=== PATIENT | female | born 1970 | race Caucasian/White ===

== ENCOUNTER → 2020-12-21 09:07 | Outpatient (CLI) | payer BC, SELFPAY ==
--- NOTE | ~2020-12-21 | XR_ITS ---
XR chest 2V DATE: 12/21/2020 11:48 INDICATION: Cough. Asthma. TECHNIQUE: PA and lateral views COMPARISON: None FINDINGS: Normal heart size. No hilar or mediastinal enlargement. No pulmonary infiltrate or consolid ation, pleural effusion or pulmonary vascular congestion or pneumothorax is detected. Included skelet al structures are unremarkable. IMPRESSION: No active cardiopulmonary disease Reviewed, dictated and finalized at location B.
== END ==
PROVIDERS: PCP Internal Medicine
DX: J45.40 Moderate persistent asthma, uncomplicated (principal); R05 Cough
CPT/HCPCS: 71046

== ENCOUNTER 2021-10-28 11:07 | Emergency (ER) | payer BC, SELFPAY ==
--- NOTE | ~2021-10-28 | XR_ITS ---
EXAMINATION: XR chest 2V DATE: 10/28/2021 12:08 INDICATION: Asthma exacerbation TECHNIQUE: PA and lateral views of the chest were obtained. COMPARISON: Chest radiograph dated 12/21/2020 FINDINGS: The lungs remain clear with no focal airspace opacities, pulmonary edema, pleural effusion or pneumot horax. The cardiomediastinal silhouette is normal. Visualized bones and soft tissues are unremarkable . IMPRESSION: 1. Normal chest radiograph. Reviewed, dictated and finalized at location A. IMPRESSION: 1. Normal chest radiograph.
[2021-10-28 11:30] VITALS: BP 163/80; PULSE 88; RESP 18; TEMP 36.8; O2SAT 99
--- NOTE | 2021-10-28 12:18 | ED.URI ---
HPI - URI/Sore Throat General Chief Complaint: Upper Respiratory Infection Stated Complaint: Cough,Shortness of Breath,Throat Irritation Time Seen by Provider: 10/28/21 12:18 Source: patient Mode of arrival: ambulatory Limitations: no limitations History of Present Illness HPI Narrative: Elvie Benites is a 51 yo female with a PMH of asthma who comes to [facility] with a asthma exacerbation that started earlier this week. She is talked to her primary care doctor who has had been having her take more frequent albuterol treatments but she still feels congested Related Data Home Medications Medication Instructions Recorded Confirmed albuterol sulfate 2 inh INHALATION PRN PRN 10/28/21 10/28/21 cetirizine [Zyrtec] 10 mg PO DAILY 10/28/21 10/28/21 famotidine [Pepcid] 20 mg PO DAILY 10/28/21 10/28/21 fluticasone propionate [Flonase] 2 spray INTRANASAL DAILY 10/28/21 10/28/21 [id number] 1 inh INHALATION DAILY 10/28/21 10/28/21 [Trelegy Ellipta] medroxyprogesterone 5 mg PO DAILY 10/28/21 10/28/21 Allergies Allergy/AdvReac Type Severity Reaction Status Date / Time NSAIDS (Non-Steroidal AdvReac Intermediate swelling Verified 10/28/21 12:26 Anti-Inflamma erythromycin base AdvReac GI upset Verified 10/28/21 12:27 theophylline AdvReac Intermediate nausea Uncoded 10/28/21 12:26 Review of Systems Review of Systems: CONSTITUTIONAL: Denies fever, chills, sweats. EYES: Denies visual changes, redness, discharge. ENT: Denies rhinorrhea, congestion, sore throat, otalgia. CARDIOVASCULAR: Denies chest pain, palpitations, edema. RESPIRATORY: Denies dyspnea, has wheezing, mild cough GASTROINTESTINAL: Denies abdominal pain, nausea, vomiting, diarrhea. GENITOURINARY: Denies dysuria, hematuria, abnormal discharge SKIN: Denies rash or itching. NEUROLOGIC: Denies numbness, or focal weakness. PSYCHIATRIC: Denies anxiety or depression. [facility] Past Medical History Medical History Asthma exacerbation Social History Social History (Updated 10/28/21 @ 12:20 by Avis Bernabe CNP) Smoking status: Never smoker Alcohol intake: current Comments At time of signature, I agree with nursing past medical, surgical, social and family history. There is no relevant family history pertinent to the presenting complaint. Blood pressure elevated at this visit; using albuterol frequently respiratory symptoms Exam Narrative: GENERAL: This is a well-nourished, well-developed patient, in mild distress. HEAD: normocephalic, atraumatic. EYES: Sclera clear/white. Vision is grossly intact. EARS: External ears normal, . Hearing grossly intact. NOSE: External nose normal without nasal discharge, nares without redness, has rhinorrhea. Sounds congested THROAT: Mucous membranes moist, posterior pharynx mild erythema NECK: Neck supple, non-tender CARDIOVASCULAR: Regular rate and rhythm without murmurs, gallops, or rubs. RESPIRATORY: Diminished to auscultation. Breath sounds equal bilaterally. No wheezes, rales, or rhonchi. GASTROINTESTINAL: Not done SKIN: warm, intact with no suspicious lesions or rash, good texture and turgor. NEURO: awake, alert, and oriented to person, place and time. There were no obvious focal neurologic abnormalities. Steady gait EXTREMITIES: Normal range of motion. BACK: Nontender without deformity Course Course Emergency Course: Patient here for asthma exacerbation reevaluation. She is talked to her doctor by phone and has increased his her albuterol treatments but she does not feel like she is improving her O2 sats in triage were 99% Chest x-ray shows normal chest radiograph with no focal opacities pulmonary edema pleural effusion or pneumothorax Strep test- negative Started on prednisone 50 mg x 5 days and [facility] patient already has been using albuterol Level of Care: Express Care Visit Vital Signs Vital signs: Vital Signs Temperature
== END 2021-10-28 12:55 | disposition home or self-care (01) ==
PROVIDERS: Emergency Provider Nurse Practitioner
DX: J45.41 Moderate persistent asthma with (acute) exacerbation (principal)
CPT/HCPCS: 71046; 87081; 87880; 99203; G0463